=== PATIENT | female | born 1975 | race Caucasian/White ===

== ENCOUNTER 2021-05-24 09:11 | Emergency (ER) | payer SELFPAY ==
[~2021-05-24] VITALS: Ht 149.8 cm; Wt 54.4 kg
[2021-05-24 09:57] LABS: BILIRUBIN,URINE NEGATIVE (NEGATIVE); CLARITY,URINE CLOUDY; COLOR,URINE YELLOW; GLUCOSE, URINE (UA) NEGATIVE (NEGATIVE); KETONES,URINE 1+ (NEGATIVE); LEUKOCYTE ESTERASE ,URINE 3+ (NEGATIVE); NITRITE,URINE POSITIVE (NEGATIVE); PROTEIN,URINE 2+ (NEGATIVE)
[2021-05-24 10:08] LABS: BACTERIA,URINE LARGE /HPF; RBC,URINE >100 /HPF; SQUAMOUS EPITHELIAL CELL,UR 25-50 /HPF; WBC,URINE TNTC /HPF
[2021-05-24] MEDS ORDERED: NITR-65 PO (10:13)
[2021-05-24] MEDS ORDERED: PHEN-640 PO (10:13)
--- NOTE | 2021-05-24 10:13 | ED GU-Female ---
General Chief Complaint: - Reproductive Stated Complaint: UTI Nursing Triage Note: PT AMB TO [facility] 5 WITH COMPLAINT OF BURNING AND PAIN ON URINATION. STATES STARTED ON WEDNESDAY. CONCERNED SHE HAS A UTI. Source: patient History of Present Illness Date Seen by Provider: May 24, 2021 Time Seen by Provider: 09:49 Initial Comments PT ARRIVES VIA POV FROM HOME C/O UTI SYMPTOMS SINCE Wednesday05/22/21 C/O PAIN ON URINATION, URGENCY, FREQUENCY NO HEMATURIA NO FEVER NO ABDOMINAL PAIN OR BACK PAIN NO NAUSEA/VOMITING HAS NOT TAKEN ANYTHING FOR SYMPTOMS HAS NOT HAD UTI IN MANY YEARS LMP 05/05/21 PCP: NONE--JUST MOVED HERE LESS THAN A MONTH AGO, FROM [place] Allergies and Home Medications Allergies Coded Allergies: No Known Drug Allergies (Unverified , 05/24/21) Patient Home Medication List Home Medication List Reviewed: Yes Nitrofurantoin Monohyd/M-Cryst (Macrobid 100 mg Capsule) 100 Mg Capsule, 1 TAB PO BID Prescribed by: ANGEL LAWRENCE on 05/24/21 1013 Phenazopyridine HCl (Pyridium) 200 Mg Tablet, 1 TAB PO TID Prescribed by: ANGEL LAWRENCE on 05/24/21 1013 Review of Systems Review of Systems Constitutional: no symptoms reported Respiratory: no symptoms reported Cardiovascular: no symptoms reported Gastrointestinal: no symptoms reported Genitourinary: see HPI, burning; denies discharge; dysuria, frequency; denies flank pain, denies hematuria; pain LMP: May 05, 2021 Musculoskeletal: no symptoms reported Skin: no symptoms reported Psychiatric/Neurological: No Symptoms Reported Endocrine: No Symptoms Reported Hematologic/Lymphatic: No Symptoms Reported Past Bwewtms-Latdyx-Btvjca Hx Patient Social History Tobacco Use?: Yes Tobacco type used: Cigarettes Smoking Status: Current Everyday Smoker Use of E-Cig and/or Vaping dev: No Substance use?: No Alcohol Use?: No Pt feels they are or have been: No Past Medical History Surgeries: No Respiratory: No Cardiac: No Neurological: No Reproductive Disorders: No Genitourinary: No Gastrointestinal: No Musculoskeletal: No Endocrine: No HEENT: No Cancer: No Psychosocial: No Integumentary: No Blood Disorders: No Physical Exam Vital Signs Vital Signs - First Documented 05/24/21 09:28 Temp 36.1 Pulse 86 Resp 17 B/P (MAP) 105/76 (86) Pulse Ox 98 O2 Delivery Room Air Capillary Refill : Less Than 3 Seconds Height, Weight, BMI Height: '" Weight: lbs. oz. 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, no motor/sensory deficits, alert, normal mood/affect, oriented x 3 Progress/Results/Core Measures Suspected Sepsis SIRS Temperature: Pulse: 86 Respiratory Rate: 17 Blood Pressure 105 /76 Mean: 86 Results/Orders Lab Results Laboratory Tests Test 05/24/21 09:35 Range/Units Urine Color YELLOW Urine Clarity CLOUDY Urine pH 7.0 5-9 Urine Specific [place] 1.020 1.016-1.022 Urine Protein 2+ H NEGATIVE Urine Glucose (UA) NEGATIVE NEGATIVE Urine Ketones 1+ H NEGATIVE Urine Nitrite POSITIVE H NEGATIVE Urine Bilirubin NEGATIVE NEGATIVE Urine Urobilinogen 1.0 < = 1.0 MG/DL Urine Leukocyte Esterase 3+ H NEGATIVE Urine RBC (Auto) 3+ H NEGATIVE Urine RBC >100 H /HPF Urine WBC TNTC H /HPF Urine Squamous Epithelial Cells 25-50 H /HPF Urine Crystals NONE /LPF Urine Bacteria LARGE H /HPF Urine Casts NONE /LPF Urine Mucus NEGATIVE /LPF Urine Culture Indicated YES Urine Test NEGATIVE NEGATIVE My Orders Orders - ANGEL LWARENCE DO Hcg,Qualitative Urine (05/24/21 09:49) Ua Culture If Indicated (05/24/21 09:49) Urine Culture (05/24/21 09:35) Vital Signs/I&O 05/24/21 09:28 Temp 36.1 Pulse 86 Resp 17 B/P (MAP) 105/76 (86) Pulse Ox 98 O2 Delivery Room Air Capillary Refill : Less Than 3 Seconds Blood Pressure Mean: 86 Departure Impression Primary Impression: Urinary tract infection Disposition: 01 HOME, SELF-CARE Condition: Stable Departure-Patient Inst. Decision time for Depature: 10:12 Referrals: NO,LOCAL PHYSICIAN (PCP/Family) Primary Care Physician Patient Instructions: Urinary Tract Infection, Adult (DC) Add. Discharge Instructions: LOTS OF CLEAR LIQUIDS--NO COFFEE, POP OR TEA TYLENOL AND MOTRIN NEEDED FOR PAIN FOLLOW UP WITH OF CHOICE NEXT WEEK FOR RECHECK/FURTHER CARE--LIST OF LOCAL PHYSICIANS PROVIDED All discharge instructions reviewed with patient and/or family. Voiced understanding. Scripts Phenazopyridine HCl (Pyridium) 200 Mg Tablet 1 TAB PO TID, #15 TAB Prov: ANGEL LAWRENCE DO 05/24/21 Nitrofurantoin Monohyd/M-Cryst (Macrobid 100 mg Capsule) 100 Mg Capsule 1 TAB PO BID, #20 CAP Prov: ANGEL LAWRENCE DO 05/24/21 Work/School Note: Local Medical Staff Listing ANGEL LAWRENCE DO May 24, 2021 10:13
[2021-05-24 10:19] VITALS: BP 105/76
[2021-05-24 10:41] LABS: AMPHETAMINE SCREEN, URINE NEGATIVE (NEGATIVE); BARBITURATE SCREEN URINE NEGATIVE (NEGATIVE); BENZODIAZEPINES SCREEN URINE NEGATIVE (NEGATIVE); CANNABINOID SCREEN, URINE NEGATIVE (NEGATIVE); COCAINE SCREEN URINE NEGATIVE (NEGATIVE); METHADONE STAT NEGATIVE (NEGATIVE); METHAMPHETAMINE SCREEN URINE S NEGATIVE (NEGATIVE); OPIATE SCREEN URINE NEGATIVE (NEGATIVE); OXYCODONE STAT NEGATIVE (NEGATIVE); PROPOXYPHENE STAT NEGATIVE (NEGATIVE); TRICYCLIC ANTIDEPRESSANTS SCRE NEGATIVE (NEGATIVE)
== END 2021-05-24 10:19 | disposition home or self-care (01) ==
LOC: ER 09:14
DX: N39.0 Urinary tract infection, site not specified (principal); F17.210 Nicotine dependence, cigarettes, uncomplicated
CPT/HCPCS: 80306; 81000; 84703; 87077; 87088; 87186; 99282

== ENCOUNTER 2021-10-29 09:20 | Emergency (ER) | payer SELFPAY ==
[~2021-10-29] VITALS: Ht 147.3 cm; Wt 54.5 kg
[~2021-10-29 09:20] MED LIST: NITR-65 PO; PHEN-640 PO
[2021-10-29] MEDS ORDERED: AMOX-358 PO (09:42)
--- NOTE | 2021-10-29 09:42 | ED General ---
General Chief Complaint: General Problems/Pain Stated Complaint: SINUS PRESSURE Nursing Triage Note: AMB TO ROOM REPORTS HAS HAD SINUS PRESSURE FOR 2 WEEKS OTC MEDS NOT HELPING. HER DR IS 2 HRS AWAY. Source of Information: Patient Exam Limitations: No Limitations History of Present Illness Date Seen by Provider: Oct 29, 2021 Time Seen by Provider: 09:23 Initial Comments 46-year-old female otherwise healthy coming in for 10 days of congestion and denies other symptoms. Not vaccinated for COVID and has not had it recently Allergies and Home Medications Allergies Coded Allergies: No Known Drug Allergies (Unverified , 05/24/21) Patient Home Medication List Home Medication List Reviewed: Yes Nitrofurantoin Monohyd/M-Cryst (Macrobid 100 mg Capsule) 100 Mg Capsule, 1 TAB PO BID Prescribed by: ANGEL LAWRENCE on 05/24/21 1013 Phenazopyridine HCl (Pyridium) 200 Mg Tablet, 1 TAB PO TID Prescribed by: ANGEL LAWRENCE on 05/24/21 1013 Review of Systems Review of Systems Constitutional: No chills EENTM: nose congestion Respiratory: cough Gastrointestinal: No abdominal pain Genitourinary: no symptoms reported Musculoskeletal: no symptoms reported Skin: no symptoms reported Psychiatric/Neurological: No Symptoms Reported Hematologic/Lymphatic: No Symptoms Reported Immunological/Allergic: no symptoms reported All Other Systems Reviewed Negative Unless Noted: Yes Past Dgpxibr-Smlcwr-Jqnhhh Hx Patient Social History Tobacco Use?: Yes Use of E-Cig and/or Vaping dev: No Substance use?: No Past Medical History Surgeries: No Respiratory: No Cardiac: No Neurological: No Reproductive Disorders: No Genitourinary: No Gastrointestinal: No Musculoskeletal: No Endocrine: No HEENT: No Cancer: No Psychosocial: No Integumentary: No Blood Disorders: No Physical Exam Vital Signs Vital Signs - First Documented 10/29/21 09:24 Temp 36.0 Pulse 85 Resp 18 B/P (MAP) 122/75 (91) Pulse Ox 98 O2 Delivery Room Air Capillary Refill : Less Than 3 Seconds Height, Weight, BMI Height: '" Weight: lbs. oz. kg; 25.00 BMI Method: General Appearance: No Apparent Distress, WD/WN Eyes: Bilateral Eye Normal Inspection HEENT: PERRL/EOMI, Normal ENT Inspection, Pharynx Normal Neck: Full Range of Motion, Normal Inspection, Non Tender, Supple Respiratory: Chest Non Tender, Lungs Clear, Normal Breath Sounds, No Accessory Muscle Use, No Respiratory Distress Cardiovascular: Regular Rate, Rhythm, No Edema, Normal Peripheral Pulses Gastrointestinal: Normal Bowel Sounds, Non Tender, Soft Back: Normal Inspection Extremity: Normal Capillary Refill, Normal Inspection, Normal Range of Motion, Non Tender Neurologic/Psychiatric: Alert, No Motor/Sensory Deficits, Normal Mood/Affect Skin: Normal Color, Warm/Dry Lymphatic: No Adenopathy Progress/Results/Core Measures Suspected Sepsis SIRS Temperature: Pulse: 85 Respiratory Rate: 18 Blood Pressure 122 /75 Mean: 91 Results/Orders Vital Signs/I&O 10/29/21 09:24 Temp 36.0 Pulse 85 Resp 18 B/P (MAP) 122/75 (91) Pulse Ox 98 O2 Delivery Room Air Capillary Refill : Less Than 3 Seconds Blood Pressure Mean: 91 Progress Note : Progress Note Coming in for 10 days of nasal congestion and sinus pressure with pain. ABCs intact vitals stable on presentation. COVID test sent and is pending. She is well-appearing. Given this was 10 days of nasal drainage with color is more possible that it is bacterial sinus infection. We will send antibiotics to her pharmacy. She was then discharged home in stable condition. Departure Impression Primary Impression: Person under investigation for COVID-19 Additional Impression: Nasal congestion Disposition: 01 HOME, SELF-CARE Condition: Stable Departure-Patient Inst. Decision time for Depature: 09:41 Referrals: PERNELL ANGELO DO (PCP/Family) Primary Care Physician Patient Instructions: COVID-19 Tests Add. Discharge Instructions: Please follow-up with [facility] here in town if you continue to have issues. Scripts Amoxicillin/Potassium Clav (Augmentin 875-125 Tablet) 1 Each Tablet 1 EACH PO BID for 7 Days, #14 TAB 0 Refills Prov: SANJUANA POLANCO MD 10/29/21 SANJUANA POLANCO MD Oct 29, 2021 09:42
[2021-10-29 09:45] VITALS: BP 122/75
== END 2021-10-29 09:45 | disposition home or self-care (01) ==
LOC: EDUNIT# 09:20 → ER 09:22
DX: R09.81 Nasal congestion (principal); Z20.822 Contact with and (suspected) exposure to COVID-19; Z72.0 Tobacco use
CPT/HCPCS: 87636; 99281

== ENCOUNTER 2022-01-12 13:21 | Emergency (ER) | payer SELFPAY ==
[~2022-01-12] VITALS: Ht 147 cm; Wt 54.4 kg
[~2022-01-12 13:21] MED LIST changes: +AMOX-358 PO
--- NOTE | 2022-01-12 14:22 | ED GU-Female ---
General Chief Complaint: - Reproductive Stated Complaint: VAGINAL BLEEDING Source: patient Exam Limitations: no limitations History of Present Illness Date Seen by Provider: January 12, 2022 Time Seen by Provider: 14:05 Initial Comments Patient to the ER by private conveyance chief complaint since Wednesday she been having some heavy bleeding got worse today as well as some sharp cramping that lasted momentarily. She says she went through a pad and a tampon at least every hour today. She is not having any chest pain or shortness of air. No fever, discharge, dyspareunia, dysuria. She has had irregular periods for the past 10 years and last year she says she was gone as much as 6 months without a period. 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 She is not on blood thinners or any medications. She did take a Midol yesterday. . She has had her tubes clamped in the past as well as her gallbladder out. Allergies and Home Medications Allergies Coded Allergies: No Known Drug Allergies (Unverified , 05/24/21) Patient Home Medication List Home Medication List Reviewed: Yes Amoxicillin/Potassium Clav (Augmentin 875-125 Tablet) 1 Each Tablet, 1 EACH PO BID Prescribed by: SANJUANA POLANCO on 10/29/21 0942 Nitrofurantoin Monohyd/M-Cryst (Macrobid 100 mg Capsule) 100 Mg Capsule, 1 TAB PO BID Prescribed by: ANGEL LAWRENCE on 05/24/21 1013 Phenazopyridine HCl (Pyridium) 200 Mg Tablet, 1 TAB PO TID Prescribed by: ANGEL LAWRENCE on 05/24/21 1013 Review of Systems Review of Systems Constitutional: No chills, No diaphoresis EENTM: No ear discharge, No hearing loss, No ear pain Respiratory: No cough, No dyspnea on exertion, No short of breath Cardiovascular: No edema, No palpitations Gastrointestinal: No abdominal pain, No nausea, No vomiting Genitourinary: denies discharge, denies dysuria Musculoskeletal: No back pain, No joint pain Skin: No pruritus, No rash All Other Systemes Reviewed Negative Unless Noted: Yes Past Bnvcimx-Mfldvd-Abewzo Hx Patient Social History Tobacco Use?: No Use of E-Cig and/or Vaping dev: No Past Medical History Surgeries: No Respiratory: No Cardiac: No Neurological: No Reproductive Disorders: No Genitourinary: No Gastrointestinal: No Musculoskeletal: No Endocrine: No HEENT: No Cancer: No Psychosocial: No Integumentary: No Blood Disorders: No Physical Exam Vital Signs Vital Signs - First Documented 01/12/22 14:19 Pulse 89 Resp 16 B/P (MAP) 131/92 (105) Pulse Ox 97 Capillary Refill : Height, Weight, BMI Height: '" Weight: lbs. oz. kg; 25.00 BMI Method: General Appearance: WD/WN, no apparent distress HEENT: PERRL/EOMI, pharynx normal Neck: full range of motion, normal inspection Cardiovascular: normal peripheral pulses, regular rate, rhythm Respiratory: no respiratory distress, no accessory muscle use Gastrointestinal: normal bowel sounds, non tender, soft Neurologic/Psychiatric: alert, normal mood/affect, oriented x 3 Progress/Results/Core Measures Suspected Sepsis SIRS Temperature: Pulse: Respiratory Rate: Laboratory Tests 01/12/22 14:45: White Blood Count 6.3 Blood Pressure / Mean: Laboratory Tests 01/12/22 14:45: Creatinine 0.67, Platelet Count 176, Total Bilirubin 0.2 Results/Orders Lab Results Laboratory Tests Test 01/12/22 14:06 01/12/22 14:45 Range/Units Urine Color YELLOW Urine Clarity CLEAR Urine pH 7.0 5-9 Urine Specific [place] 1.015 L 1.016-1.022 Urine Protein NEGATIVE NEGATIVE Urine Glucose (UA) NEGATIVE NEGATIVE Urine Ketones NEGATIVE NEGATIVE Urine Nitrite NEGATIVE NEGATIVE Urine Bilirubin NEGATIVE NEGATIVE Urine Urobilinogen 0.2 < = 1.0 MG/DL Urine Leukocyte Esterase NEGATIVE NEGATIVE Urine RBC (Auto) TRACE-I H NEGATIVE Urine RBC RARE /HPF Urine WBC RARE /HPF Urine Squamous Epithelial Cells 0-2 /HPF Urine Crystals NONE /LPF Urine Bacteria NEGATIVE /HPF Urine Casts NONE /LPF Urine Mucus NEGATIVE /LPF Urine Culture Indicated NO White Blood Count 6.3 4.3-11.0 10^3/uL Red Blood Count 4.26 3.80-5.11 10^6/uL Hemoglobin 13.0 11.5-16.0 g/dL Hematocrit 40 35-52 % Mean Corpuscular Volume 94 80-99 fL Mean Corpuscular Hemoglobin 31 25-34 pg Mean Corpuscular Hemoglobin Concent 33 32-36 g/dL Red Cell Distribution Width 13.2 10.0-14.5 % Platelet Count 176 130-400 10^3/uL Mean Platelet Volume 9.2 9.0-12.2 fL Immature Granulocyte % (Auto) 0 % Neutrophils (%) (Auto) 63 42-75 % Lymphocytes (%) (Auto) 29 12-44 % Monocytes (%) (Auto) 5 0-12 % Eosinophils (%) (Auto) 3 0-10 % Basophils (%) (Auto) 1 0-10 % Neutrophils # (Auto) 3.9 1.8-7.8 10^3/uL Lymphocytes # (Auto) 1.8 1.0-4.0 10^3/uL Monocytes # (Auto) 0.3 0.0-1.0 10^3/uL Eosinophils # (Auto) 0.2 0.0-0.3 10^3/uL Basophils # (Auto) 0.0 0.0-0.1 10^3/uL Immature Granulocyte # (Auto) 0.0 0.0-0.1 10^3/uL Sodium Level 137 135-145 MMOL/L Potassium Level 4.1 3.6-5.0 MMOL/L Chloride Level 109 H 98-107 MMOL/L Carbon Dioxide Level 21 21-32 MMOL/L Anion Gap 7 5-14 MMOL/L Blood Urea Nitrogen 9 7-18 MG/DL Creatinine 0.67 0.60-1.30 MG/DL Estimat Glomerular Filtration Rate 109 BUN/Creatinine Ratio 13 Glucose Level 95 70-105 MG/DL Calcium Level 8.4 L 8.5-10.1 MG/DL Corrected Calcium 8.7 8.5-10.1 MG/DL Total Bilirubin 0.2 0.1-1.0 MG/DL Aspartate Amino Transf (AST/SGOT) 22 5-34 U/L Alanine Aminotransferase (ALT/SGPT) 14 0-55 U/L Alkaline Phosphatase 64 40-136 U/L Total Protein 6.1 L 6.4-8.2 GM/DL Albumin 3.6 3.2-4.5 GM/DL Thyroid Stimulating Hormone (TSH) 0.78 0.35-4.94 UIU/ML Human Chorionic Gonadotropin, Quant < 5 <5 MIU/ML My Orders Orders - PIERRE HERNADEZ Ua Culture If Indicated (01/12/22 14:15) Urine Bedside (01/12/22 14:15) Cbc With Automated Diff (01/12/22 14:15) Comprehensive Metabolic Panel (01/12/22 14:15) Protime With Inr (01/12/22 14:15) Partial Thromboplastin Time (01/12/22 14:15) Iron Tibc %Sat & Ferritin (01/12/22 14:23) Thyroid Stimulating Hormone (01/12/22 14:23) Us Non Ob Pelvis Comp/Transvag (01/12/22 14:23) Hcg,Quantitative (01/12/22 15:54) Vital Signs/I&O 01/12/22 14:19 Pulse 89 Resp 16 B/P (MAP) 131/92 (105) Pulse Ox 97 Capillary Refill : Progress Note : Time: : Progress Note We will capture some labs to look for bleeding disorders including a ferritin to determine if she is depleting her iron stores. We will check a urinalysis and obtain ultrasound of the pelvis. Diagnostic Imaging Diagonstic Imaging: Ultrasound Plain Films/CT/US/NM/MRI: pelvis Comments [facility], [place] NAME: VENTURA MENDEZ [facility] REC#: [id number] PT STATUS: REG ER : 1975 PHYSICIAN: PIERRE HERNADEZ MD ADMIT DATE: 01/12/22/ER Draft Date of Exam:01/12/22 US NON OB PELVIS COMP/TRANSVAG PROCEDURE: Pelvic complete, transabdominal and transvaginal sonogram. Limited pelvic Doppler. TECHNIQUE: Multiple real-time grayscale images were obtained of the pelvis in various projections transabdominally and transvaginally. Limited pelvic duplex images were obtained. HISTORY: Abnormal uterine bleeding. COMPARISON: None available. FINDINGS: Uterus: The uterus is anteverted and measures 7.4 x 3.5 x 6.5 cm. There is a 2.8 cm intramural uterine fibroid. Endometrium: The endometrium is normal in thickness and measures 0.2 cm. Tiny focus of fluid or cystic structure within the endometrium measuring up to 0.2 cm. Adnexa: There are right ovarian cysts measuring up to 2.8 cm. The left ovary is not visualized. The right ovary measures 3.6 x 2.0 x 2.8 cm. Duplex images reveal normal vascular flow to the right ovary. Other: There is no free fluid within the pelvis. IMPRESSION: 1. Tiny cystic structure within the endometrium, which could represent endometrial fluid or possibly early . Recommend correlation with beta-hCG and follow-up with ultrasound in 14 days if clinically indicated. 2. Simple-appearing right ovarian cyst measuring up to 2.8 cm, which requires no follow-up. 3. A 2.8 cm intramural uterine fibroid. Dictated on workstation # [id number] Dict: 01/12/22 1533 Trans: 01/12/22 1541 [id number] Interpreted by: BETH DAVEY DO Electronically signed by: Reviewed: Reviewed by Me Departure Impression Primary Impression: Abnormal uterine bleeding (AUB) Disposition: 01 HOME, SELF-CARE Condition: Stable Departure-Patient Inst. Decision time for Depature: 16:18 Referrals: PERNELL ANGELO DO (PCP/Family) Primary Care Physician Patient Instructions: Heavy Periods (DC), LOCAL PHYSICIAN LIST Add. Discharge Instructions: Drink plenty of fluids. Make a follow-up appointment with gynecology your choice. Dr. Domínguez would be willing to see you if you want to call him for an appointment. Provera 10 mg daily for the next 1 to 2 weeks until bleeding is under control. Promptly return to the ER for chest pain, shortness of air or other worrisome symptoms. All discharge instructions reviewed with patient and/or family. Voiced understanding. Scripts Medroxyprogesterone Acetate (Provera) 10 Mg Tablet 10 MG PO DAILY for 14 Days, #14 TAB 0 Refills Prov: PIERRE HERNADEZ 01/12/22 Work/School Note: Work Release Form Date Seen in the Emergency Department: January 12, 2022 Return to Work: January 13, 2022 Restrictions: No Restrictions PIERRE HERNADEZ January 12, 2022 14:22
[2022-01-12 14:32] LABS: BILIRUBIN,URINE NEGATIVE (NEGATIVE); CLARITY,URINE CLEAR; COLOR,URINE YELLOW; GLUCOSE, URINE (UA) NEGATIVE (NEGATIVE); KETONES,URINE NEGATIVE (NEGATIVE); LEUKOCYTE ESTERASE ,URINE NEGATIVE (NEGATIVE); NITRITE,URINE NEGATIVE (NEGATIVE); PROTEIN,URINE NEGATIVE (NEGATIVE)
[2022-01-12 14:46] LABS: BACTERIA,URINE NEGATIVE /HPF; RBC,URINE RARE /HPF; SQUAMOUS EPITHELIAL CELL,UR 0-2 /HPF; WBC,URINE RARE /HPF
[2022-01-12 14:55] LABS: BASOPHILS % (AUTO) 1 % (0-10); EOSINOPHILS # (AUTO) 0.2 10^3/uL (0.0-0.3); EOSINOPHILS % (AUTO) 3 % (0-10); HEMATOCRIT 40 % (35-52); LYMPHOCYTES # (AUTO) 1.8 10^3/uL (1.0-4.0); LYMPHOCYTES % (AUTO) 29 % (12-44); MEAN CORPUSCULAR HEMOGLOBIN 31 pg (25-34); MEAN CORPUSCULAR HGB CONC 33 g/dL (32-36); MEAN CORPUSCULAR VOLUME 94 fL (80-99); MEAN PLATELET VOLUME 9.2 fL (9.0-12.2); MONOCYTES # (AUTO) 0.3 10^3/uL (0.0-1.0); MONOCYTES % (AUTO) 5 % (0-12); NEUTROPHILS # (AUTO) 3.9 10^3/uL (1.8-7.8); NEUTROPHILS % (AUTO) 63 % (42-75); PLATELET COUNT 176 10^3/uL (130-400); WHITE BLOOD COUNT 6.3 10^3/uL (4.3-11.0)
[2022-01-12 15:05] LABS: ALBUMIN 3.6 GM/DL (3.2-4.5); POTASSIUM 4.1 MMOL/L (3.6-5.0)
[2022-01-12 15:06] LABS: CALCIUM 8.4 MG/DL (8.5-10.1)
[2022-01-12 15:07] LABS: TOTAL PROTEIN 6.1 GM/DL (6.4-8.2)
[2022-01-12 15:09] LABS: BILIRUBIN,TOTAL 0.2 MG/DL (0.1-1.0)
[2022-01-12 15:11] LABS: CREATININE SERUM 0.67 MG/DL (0.60-1.30)
--- NOTE | 2022-01-12 15:41 | Diagnostic Imaging Report ---
PROCEDURE: Pelvic complete, transabdominal and transvaginal sonogram. Limited pelvic Doppler. TECHNIQUE: Multiple real-time grayscale images were obtained of the pelvis in various projections transabdominally and transvaginally. Limited pelvic duplex images were obtained. HISTORY: Abnormal uterine bleeding. COMPARISON: None available. FINDINGS: Uterus: The uterus is anteverted and measures 7.4 x 3.5 x 6.5 cm. There is a 2.8 cm intramural uterine fibroid. Endometrium: The endometrium is normal in thickness and measures 0.2 cm. Tiny focus of fluid or cystic structure within the endometrium measuring up to 0.2 cm. Adnexa: There are right ovarian cysts measuring up to 2.8 cm. The left ovary is not visualized. The right ovary measures 3.6 x 2.0 x 2.8 cm. Duplex images reveal normal vascular flow to the right ovary. Other: There is no free fluid within the pelvis. IMPRESSION: 1. Tiny cystic structure within the endometrium, which could represent endometrial fluid or possibly early . Recommend correlation with beta-hCG and follow-up with ultrasound in 14 days if clinically indicated. 2. Simple-appearing right ovarian cyst measuring up to 2.8 cm, which requires no follow-up. 3. A 2.8 cm intramural uterine fibroid. Dictated by: Dictated on workstation # [id number]
[2022-01-12] MEDS ORDERED: MEDR10TA PO (16:32)
[2022-01-12 16:38] VITALS: BP 126/90
== END 2022-01-12 16:38 | disposition home or self-care (01) ==
LOC: EDUNIT# 13:21 → ER 13:22
DX: N93.8 Other specified abnormal uterine and vaginal bleeding (principal); Z90.49 Acquired absence of other specified parts of digestive tract
CPT/HCPCS: 36415; 76830; 76856; 80053; 81000; 82728; 83540; 83550; 84443; 84702; 84703; 85025